=== PATIENT | female | born 1960 | race Caucasian/White ===

== ENCOUNTER 2021-10-31 05:49 | Emergency (ER) | payer BC ==
[2021-10-31] MEDS ORDERED: ACETAMINOPHEN 500 MG TABLET (FP) PO ONE (06:10)
[2021-10-31 06:19] VITALS: BP 198/87; PULSE 74; TEMP 98; BMI 30.1
[2021-10-31] MEDS ORDERED: ACETAMINOPHEN 500 MG TABLET (FP) ONE (06:22)
[2021-10-31] MEDS ORDERED: LIDOCAINE HCL 1%, 10 MG/ML (50 mL VIAL) SQ ONE (06:30)
[2021-10-31] MEDS ORDERED: LIDOCAINE HCL 1%, 10 MG/ML (20ML VIAL) ONE ×2 (06:31→06:39)
== END 2021-10-31 07:12 | disposition home or self-care (01) ==
LOC: JER 05:49
DX: S62.605A Fracture of unspecified phalanx of left ring finger, initial encounter for closed fracture (principal); W07.XXXA Fall from chair, initial encounter
CPT/HCPCS: 73130-TC-LT-FY; 73140-TC-LT-FY; 99283-25

== ENCOUNTER 2021-11-23 06:54 | Emergency (ER) | payer BC ==
[2021-11-23 08:03] VITALS: BP 178/89; PULSE 76; TEMP 98.8; BMI 30.1
[2021-11-25 00:07] LABS: SARS-CoV-2 NAA Not Detected (Not Detected)
== END 2021-11-23 12:44 | disposition home or self-care (01) ==
LOC: JER 06:54
DX: J02.9 Acute pharyngitis, unspecified (principal)
CPT/HCPCS: 71046-TC-FY; 87070; 87804; 99284-25; C9803; U0003; U0005

== ENCOUNTER 2022-02-27 04:46 | Day surgery (SDC) | payer BC ==
[2022-02-25 09:01] VITALS: BMI 29.7
[2022-02-27 09:30] VITALS: TEMP 97.1
[2022-02-27 10:24] VITALS: BP 128/70; PULSE 72
== END 2022-02-27 10:41 | disposition home or self-care (01) ==
LOC: JASU-ENDO 04:46
PROVIDERS: ATTEND Internal Medicine Gastroenterology
PROC: 0DJD8ZZ Inspection of Lower Intestinal Tract, Via Natural or Artificial Opening Endoscopic (ICD-10-PCS; principal; 2022-02-27 09:00)
DX: Z12.11 Encounter for screening for malignant neoplasm of colon (principal); K57.30 Diverticulosis of large intestine without perforation or abscess without bleeding; K64.8 Other hemorrhoids; K92.1 Melena; Z86.010 Personal history of colon polyps

== ENCOUNTER 2023-12-24 18:38 | Emergency (ER) | payer BC ==
[2023-12-24 19:08] VITALS: BP 193/103; PULSE 70; RESP 18; TEMP 99; BMI 30.9
[2023-12-24] MEDS ORDERED: IBUPROFEN 600 MG TABLET (FP) PO ONE ×2 (19:25→19:32)
== END 2023-12-24 20:30 | disposition home or self-care (01) ==
LOC: FER 18:38
DX: S76.011A Strain of muscle, fascia and tendon of right hip, initial encounter (principal); S83.91XA Sprain of unspecified site of right knee, initial encounter; W10.8XXA Fall (on) (from) other stairs and steps, initial encounter; Y92.9 Unspecified place or not applicable
CPT/HCPCS: 73502-TC-RT-FY; 73562-TC-RT-FY; 99283-25